=== PATIENT | female | born 1980 | race Caucasian/White ===

== ENCOUNTER 2017-03-23 19:16 | Emergency (ER) | payer OTHER ==
[2017-03-23 20:16] VITALS: BP 123/75
--- NOTE | 2017-03-23 20:51 | UC ---
Lower Extremity/Ankle HPI - HPI Summary HPI Summary: This is a 37 yo obese female with anxiety and depression who presents with complaints of foot pain. She tripped on one of her son's toys last night causing her to twist her foot and fall. She has been applying ice and using ibuprofen with persistent lateral foot pain. She has been able to walk, but with pain. - History of Current Complaint Chief Complaint: UCLowerExtremity Stated Complaint: LF FOOT INJURY Hx Last Menstrual Period: 02/26/17 - Allergies/Home Medications Allergies/Adverse Reactions: Allergies Allergy/AdvReac Type Severity Reaction Status Date / Time Hydrocodone [From Vicodin] Allergy ITCHY, Verified 03/23/17 20:16 NAUSEA Penicillins [PCN] Allergy Rash Verified 03/23/17 20:16 Sulfa Antibiotics Allergy Rash Verified 03/23/17 20:16 FRUITS WITH PITS Allergy THROAT Uncoded 03/23/17 20:16 SWELLING PECAN Allergy THROAT Uncoded 03/23/17 20:16 SWELLING sulfa drugs Allergy Rash Uncoded 03/23/17 20:16 WALNUT Allergy THROAT Uncoded 03/23/17 20:16 SWELLING Home Medications: Home Medications LoraTADine TAB(NF) [Claritin 10 MG TAB(NF)] 10 mg PO DAILY 03/23/17 [History Confirmed 03/23/17] PARoxetine HCL TAB* [Paxil TAB*] 20 mg PO DAILY 03/23/17 [History Confirmed 12/02] Zolpidem TAB* [Ambien*] 5 mg PO BEDTIME PRN 03/23/17 [History Confirmed 03/23/17 ] busPIRone TAB* [Buspar TAB*] 10 mg SEE INSTRUCTIONS 03/23/17 [History Confirmed 03/23/17] PMH/Surg Hx/FS Hx/Imm Hx Previously Healthy: No - obese, anxiety/depression - Surgical History Surgical History: Yes Surgery Procedure, Year, and Place: LEFT WRIST ARTHROSCOPY- 08/2015 & 06/2016- [facility]. appendectomy 11/2016 - Social History Alcohol Use: None Substance Use Type: None Smoking Status (MU): Never Smoked Tobacco Review of Systems Constitutional: Negative Skin: Negative Eyes: Negative ENT: Negative Respiratory: Negative Cardiovascular: Negative Gastrointestinal: Negative Genitourinary: Negative Motor: Negative Neurovascular: Negative Musculoskeletal: Arthralgia, Myalgia Neurological: Negative Psychological: Negative All Other Systems Reviewed And Are Negative: Yes Physical Exam Triage Information Reviewed: Yes Appearance: Well-Appearing Vital Signs: Initial Vital Signs Temp 97.7 F 03/23/17 20:10 Pulse 90 03/23/17 20:10 Resp 17 03/23/17 20:10 BP 123/75 03/23/17 20:10 Pulse Ox 99 03/23/17 20:10 Vital Signs Reviewed: Yes ENT Exam: Normal ENT: Positive: Hearing grossly normal Neck: Positive: Supple, Nontender Respiratory: Positive: Lungs clear. Negative: Crackles, Rhonchi, Wheezing Cardiovascular: Positive: RRR, No Murmur Abdomen Description: Positive: Nontender, Soft Musculoskeletal: Positive: Strength Intact, ROM Intact, Other: - TTP over lateral dorsal aspect of the foot Neurological: Positive: Alert, Muscle Tone Normal Psychological Exam: Normal Skin: Positive: Other - no ecchymosis Diagnostics - Laboratory Diagnostic Studies Completed/Ordered: XR foot - neg for fx Lower Extremity Course/Dx - Course Course Of Treatment: This is an obese 37 yo female who injured her foot yesterday in an inversion type injury. XR neg for fx. Recommend ice, NSAIDs and compression. She has a neoprene brace that she is encouraged to continue using. - Differential Dx/Diagnosis Differential Diagnosis/HQI/PQRI: Contusion, Dislocation, Fracture (Closed), Sprain, Strain Provider Diagnoses: 1. Foot sprain - L Discharge - Discharge Plan Condition: Stable Disposition: HOME Patient Education Materials: Foot Sprain (ED) Referrals: Erika Mcgee MD [Primary Care Provider] - If Needed Additional Instructions: Instructions: 1. Keep brace in place for compression and support 2. Use 600-800 mg ibuprofen three times daily to treat pain and swelling 3. Ice frequently
--- NOTE | 2017-03-23 20:56 | RAD ---
Indication: Lateral aspect LEFT foot pain following injury. Comparison: No relevant prior exams available on the [facility] PACS for comparison. Technique: AP, lateral, and oblique views LEFT foot. Report: Negative for fracture or malalignment. Unremarkable soft tissue contours. IMPRESSION: Negative radiographic exam of the LEFT foot.
== END 2017-03-23 21:04 | disposition home or self-care (01) ==
LOC: UCCORT 19:16
DX: S93.602A Unspecified sprain of left foot, initial encounter (principal); X50.1XXA Overexertion from prolonged static or awkward postures, initial encounter; F41.9 Anxiety disorder, unspecified; F32.9 Major depressive disorder, single episode, unspecified; Z88.0 Allergy status to penicillin; Z88.2 Allergy status to sulfonamides; Z88.5 Allergy status to narcotic agent; Z91.018 Allergy to other foods; E66.9 Obesity, unspecified
CPT/HCPCS: 99211; G0463

== ENCOUNTER 2018-10-31 15:33 | Day surgery (SDC) | payer OTHER ==
[~2018-10-31 15:33] MED LIST: Buffered Lidocaine 1% SYRIN* 1 ML/SYRINGE INTRADERM ONE; Clindamycin 900 MG IVPREMIX(* 900 MG/50 ML SDV IV ONE; Dexamethasone IV* 4 MG/ML 1 ML (4 MG) IV SLOW PU ONE; Dexamethasone IV* 4 MG/ML 1 ML (4 MG) ONE; Famotidine IV* 10 MG/ML 2 ML (20 mg) IV ONE; Famotidine IV* 10 MG/ML 2 ML (20 mg) ONE; Lactated Ringers 1000 ML Bag* 1,000 ML IV SCH; Scopolamine 1.5 mg* PATCH ONE; Scopolamine 1.5 mg* PATCH TRANSDERM ONE
[2018-10-31] MEDS ORDERED: Bupivacaine 0.25% SDV PF* 10 ML VIAL INJ ONE (15:43)
[2018-10-31] MEDS ORDERED: DiMENhydriNATE IV* 50 MG/ML VIAL IV PUSH PRN (16:02)
[2018-10-31] MEDS ORDERED: Naloxone* 0.4 MG/ML 1 ML VIAL IV PRN (16:02)
[2018-10-31] MEDS ORDERED: Lidocaine 2% PF * 5 ML VIAL ONE (16:09)
[2018-10-31] MEDS ORDERED: Ondansetron INJ* 2 MG/ML VIAL ONE (16:09)
[2018-10-31] MEDS ORDERED: Propofol* 10 MG/ML 20 ML BTL ONE (16:09)
[2018-10-31] MEDS ORDERED: Midazolam* 1 MG/ML 2 ML VIAL (2 MG) ONE (16:09)
[2018-10-31] MEDS ORDERED: Ketorolac INJ* 30 MG/ML 1 ML VIAL ONE (16:09)
[2018-10-31] MEDS ORDERED: fentaNYL* 50 MCG/ML 2 ML VIAL (100 MCG VIAL) ONE (18:53)
[2018-10-31] MEDS: fentaNYL* 50 MCG/ML 2 ML VIAL (100 MCG VIAL) IV PRN ×4 (18:54→20:01)
[2018-10-31] MEDS ORDERED: oxyCODONE/Acetamin 5/325 MG* TAB ONE (19:39)
[2018-10-31] MEDS ORDERED: DiMENhydriNATE IV* 50 MG/ML VIAL ONE (19:46)
[2018-10-31 20:56] VITALS: BP 117/72
--- NOTE | 2018-11-02 14:02 | OP ---
DATE OF OPERATION: 10/31/18 - [facility] DATE OF : 84 SURGEON: Patricio Avendano MD. FERRYBOAT PILOT: JOSE Anne. An assistant brand manager was needed for the procedure to aid in positioning of the arm and retraction. ANESTHESIA: General. PRE-OP DIAGNOSIS: Painful hardware left ulnar shaft, status post well-healed ulnar shortening osteotomy, potential concern for osteomyelitis. POST-OP DIAGNOSIS: Painful hardware left ulnar shaft, status post well-healed ulnar shortening osteotomy, potential concern for osteomyelitis. OPERATIVE PROCEDURE: Removal of hardware left ulna. Clean bone and soft tissue cultures as well as cultures of the hardware left ulna. INDICATIONS: Lorena has a well-healed ulnar shortening osteotomy that was done in late 2015. She just started to develop pain about 2 months ago and so she came back to the office. She had been completely pain-free prior to that. Pain is around the osteotomy site. I got an x-ray which showed some lucency between the plate and the bone. I got a CT scan which showed the lucency and was read by the radiologist as concerning for potential osteomyelitis. I had obtained blood work which showed a completely normal white blood cell count without a left shift, a normal CRP, and a very slightly elevated ESR. I told her I thought we should remove the plate and screws. I saw her in the clinic on Wednesday and told her we have to do it on Wednesday. She understands the risks and benefits. She understands there is a risk of refracture. She wants to proceed. ESTIMATED BLOOD LOSS: 2 mL. COMPLICATIONS: None. FINDINGS: See above and below. DESCRIPTION OF PROCEDURE: Lorena was seen in the preoperative holding area. The correct side, site, and procedure were identified. We came back to the operating room. The arm was prepped and draped in the usual fashion and a time- out was performed. The arm was exsanguinated with the Esmarch and the tourniquet was inflated to 250 mmHg. I flexed at the elbow and my assistant brand manager held the arm bent while I made a longitudinal incision along her prior incision. Dissection was carried down and full-thickness flaps were raised off the fascia and periosteum which was well healed. There was no inflammatory looking tissue whatsoever encountered superficial to the fascia. I then made a longitudinal incision over the periosteum and exposed the plate and released the soft tissue all about the plate. Next, also exposed some of the volar aspect of the bone over the area of the lucency. Absolutely no inflamed-looking tissue was encountered. There was no fluid around the plate. None of the hardware was loose whatsoever. None of the bone appeared to be soft. Osteotomy was clearly well healed. I removed all of the screws in standard fashion. These came out uneventfully. None of the screws were loose, but were all very solidly fixed. The plate was removed. I smoothed off the bone where the plate had been. I did send the screws and the plate for the aerobic and anaerobic fungal and mycobacterial cultures. After moving the plate, I immediately took cultures from the bone and soft tissue from the bony fragments that surrounded the plate as well as the soft tissue all around the plate. These again were sent for aerobic, anaerobic, fungal, and mycobacterial cultures. At this point, I irrigated out the wound. Everything was looking very stable and clean. Again, nothing during the case looked contaminated or infected. Fascia was closed with 3-0 PDS sutures, subcutaneous tissue was reapproximated with 4-0 PDS suture, skin was closed with a 3-0 Monocryl suture and Sterri- Strips. Marcaine was infiltrated all around the operative area. She was then placed in a well-padded sugar tong splint and taken to the recovery room in stable condition. [id number]/[facility] #: [id number] DAVID
[2018-11-03] MEDS ORDERED: Scopolamine PATCH Remove* 1 NOTE MISC PATCH OFF ONE (06:00)
== END 2018-10-31 20:56 | disposition home or self-care (01) ==
LOC: OR 15:33
PROVIDERS: ATTEND Orthopaedic Surgery Hand Surgery
DX: T84.84XA Pain due to internal orthopedic prosthetic devices, implants and grafts, initial encounter (principal); Z11.8 Encounter for screening for other infectious and parasitic diseases; Z98.1 Arthrodesis status; F41.8 Other specified anxiety disorders; Z88.0 Allergy status to penicillin; Z88.8 Allergy status to other drugs, medicaments and biological substances
CPT/HCPCS: 81025; 87070; 87073; 87102; 87116; 87205; 87206; A9270-GY; J1100; J1240; J1885; J2250; J2405; J2704; J3010; J3490

== ENCOUNTER 2019-07-31 07:14 | Day surgery (SDC) | payer OTHER ==
[~2019-07-31 07:14] MED LIST changes: -Clindamycin 900 MG IVPREMIX(* 900 MG/50 ML SDV IV ONE; -Dexamethasone IV* 4 MG/ML 1 ML (4 MG) ONE; -Famotidine IV* 10 MG/ML 2 ML (20 mg) ONE; -Scopolamine 1.5 mg* PATCH ONE; -Scopolamine 1.5 mg* PATCH TRANSDERM ONE
[2019-07-31] MEDS ORDERED: Clindamycin 900 MG/D5W BAG(*) 900 MG/50 ML BAG IVPB ONE (07:55)
[2019-07-31] MEDS ORDERED: Dexamethasone IV* 4 MG/ML 1 ML (4 MG) ONE (07:55)
[2019-07-31] MEDS ORDERED: Famotidine IV* 10 MG/ML 2 ML (20 mg) ONE (07:55)
[2019-07-31] MEDS ORDERED: Midazolam* 1 MG/ML 2 ML VIAL (2 MG) ONE (08:06)
[2019-07-31] MEDS ORDERED: fentaNYL* 50 MCG/ML 2 ML VIAL (100 MCG VIAL) ONE ×2 (08:06→11:53)
[2019-07-31] MEDS ORDERED: Scopolamine 1.5 mg* PATCH ONE (08:41)
[2019-07-31] MEDS ORDERED: Scopolamine 1.5 mg* PATCH TRANSDERM SCH (09:00)
[2019-07-31] MEDS ORDERED: Metoclopramide IV* 5 MG/ML 2 ML VIAL ONE (09:12)
[2019-07-31] MEDS ORDERED: KETAMINE HCL* 50 MG/ML 10 ML VIAL ONE (09:14)
[2019-07-31] MEDS ORDERED: Propofol* 10 MG/ML 20 ML BTL ONE (09:15)
[2019-07-31] MEDS ORDERED: Lidocaine 1% INJ* 10 MG/ML 30 ML SDV ONE (09:19)
[2019-07-31] MEDS ORDERED: Bupivacaine 0.25% SDV* 30 ML ONE (09:19)
[2019-07-31] MEDS ORDERED: fentaNYL* 50 MCG/ML 2 ML VIAL (100 MCG VIAL) IV PRN (10:00)
[2019-07-31] MEDS ORDERED: DiMENhydriNATE IV* 50 MG/ML VIAL IV PUSH PRN (10:00)
[2019-07-31] MEDS ORDERED: Naloxone* 0.4 MG/ML 1 ML VIAL IV PRN (10:00)
[2019-07-31 12:41] VITALS: BP 122/77
--- NOTE | 2019-07-31 20:46 | OP ---
DATE OF OPERATION: 07/31/19 - [facility] DATE OF : 84 SURGEON: Patricio Avendano MD DECKHAND TUNA BOAT: JOSE Ornelas ANESTHESIOLOGIST: Dr. Bragg. ANESTHESIA: General. PRE-OP DIAGNOSIS: Left symptomatic pisotriquetral degenerative joint disease. POST-OP DIAGNOSIS: Left symptomatic pisotriquetral degenerative joint disease. OPERATIVE PROCEDURE: Left wrist excision of pisiform bone. INDICATIONS: Ms. Vidal has undergone an ulnar shortening osteotomy and then subsequent removal of hardware. She was left with volar ulnar wrist pain; it is not subsiding. She is very tender with any compression of the pisotriquetral joint. She is tender all about the joint line. We had talked about treatment options. I thought we could try to excise the pisiform bone and see if that would help with her pain. She understands there is a chance she may still have pain. ESTIMATED BLOOD LOSS: 2 mL. COMPLICATIONS: None. FINDINGS: See above and below. DESCRIPTION OF PROCEDURE: Ms. Vidal was seen in the preoperative holding area. The correct site, side, and procedure were identified. We came back to the operating room. The arm was prepped and draped in the usual fashion and time-out was performed. The arm was exsanguinated with the Esmarch and the tourniquet was inflated. I raised a radially based trapezoid shaped flap centered over the pisiform bone. Full thickness flaps were raised off the distal FCU tendon sheath in the pisiform bone. I then longitudinally incised the soft tissue over the superficial aspect of the pisiform. The pisiform bone was then shield out using a combination of the 15 blade and the [place] blade. It then came out as one piece. It was degenerative and had full thickness cartilage loss on the proximal aspect. At this point, everything was looking good. I did not see any other obvious abnormalities. The wound was irrigated out. The tendon split was repaired with 3-0 PDS suture. Skin was closed with 4-0 nylon. Soft dressing was applied and she was taken to the recovery room in stable condition. [id number]/[facility] #: [id number] MTDD
== END 2019-07-31 12:48 | disposition home or self-care (01) ==
LOC: OR 07:14
PROVIDERS: ATTEND Orthopaedic Surgery Hand Surgery
DX: M19.032 Primary osteoarthritis, left wrist (principal); F41.8 Other specified anxiety disorders; J45.909 Unspecified asthma, uncomplicated; K21.9 Gastro-esophageal reflux disease without esophagitis; Z68.41 Body mass index [BMI] 40.0-44.9, adult; R00.2 Palpitations
CPT/HCPCS: 88304; 88311; A9270-GY; J1100; J2250; J2704; J2765; J3010; J3490